=== PATIENT | female | born 1975 | race Caucasian/White ===

== ENCOUNTER 2019-10-22 06:06 | Day surgery (SDC) | payer OTHER ==
[~2019-10-22 06:06] MED LIST: CLONAZEPAM0.5 MG PO; PAXIL40 MG PO
== END 2019-10-22 17:05 | disposition home or self-care (01) ==
LOC: CIR.AMB 06:06
PROVIDERS: ATTEND Orthopaedic Surgery Hand Surgery
DX: M65.231 Calcific tendinitis, right forearm (principal); Z20.828 Contact with and (suspected) exposure to other viral communicable diseases